=== PATIENT | female | born 2005 | race Caucasian/White ===

== ENCOUNTER 2025-01-06 13:36 | Outpatient (OUT) | payer OTHER, SELFPAY ==
--- NOTE | 2025-01-06 13:45 | XR_ITS ---
[address] [address] Patient Name: LARISSA BIGGS MRN: [id number] date: 2005 Sex: F Assigned Patient Location: RAD Current Patient Location: [facility] Accession/Order Number: [id number] Exam Date: 01/06/2025 13:52 Report Date: 01/06/2025 14:17 At the request of: ERLINDA PRYOR Procedure: XR knee RT 4V RIGHT KNEE - 4 views CLINICAL HISTORY: Pain in right knee COMPARISON: None FINDINGS: No knee joint effusion. Joint spaces appear maintained. No acute bony process. XR/XR knee RT 4V IMPRESSION: NO ACUTE BONY PROCESS. Impression dictated by: Spenser Trammell Jr., SarahOHina 01/06/2025 2:17 PM Dictation Location: [place] [address] Electronically authenticated by: [id number] Y Date: 01/06/2025 14:17
== END 2025-01-06 13:37 | disposition home or self-care (01) ==
LOC: RAD 13:39
PROVIDERS: PCP Nurse Practitioner; Visit Provider Nurse Practitioner
DX: S89.91XA Unspecified injury of right lower leg, initial encounter (principal); Z78.9 Other specified health status; M25.561 Pain in right knee; Z68.30 Body mass index [BMI] 30.0-30.9, adult
CPT/HCPCS: 73564

== ENCOUNTER 2025-02-27 15:32 | Outpatient (OUT) | payer OTHER, SELFPAY ==
--- OUTSIDE RECORDS SUMMARY | 2025-02-27 15:36 | XMS_ITS | Clinical Summary ---
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 Name Role Phone Tejal Davis MD Primary Care Provider [phone] Allergies Active AllergyReactionsCriticalityNoted DateCommentsPenicillinsNausea And Vomiting,CmruUfh6607/10/2021ulfa AntibioticsRash,Swelling,AiaujYiy50/10/2022 Medications MedicationSigDispense QuantityRefillsLast FilledStart DateEnd DateStatus sertraline (Zoloft) 100 MG tablet Take by mouth Daily.Active Active Problems ProblemNoted DateDiagnosed DateVitamin D pdynykenty60/01/2025Generalized kxwfromzjogci58/01/2025bnormal weight gain08/31/2024Other yxpfvdx1708/31/2024 Family History Medical HistoryRelationNameCommentsBreast cancerMotherCancerMotherThyroid diseaseMotherRelationNameStatusCommentsFatherDeceasedMotherAlive Social History Tobacco UseTypesPacks/DayYears UsedDateSmoking Tobacco: NeverSmokeless Tobacco: NeverAlcohol UseStandard Drinks/WeekCommentsNever0 (1 standard drink = 0.6 oz pure alcohol)CommentsNoSex and Gender InformationValueDate RecordedSex Assigned at BirthNot on fileLegal GzfPqrcrq06/15/2023 7:00 PM EDTGender Identity Not on fileSexual OrientationNot on file Last Filed Vital Signs Vital SignReadingTime TakenCommentsBlood Vfxurayp783/6801 4:46 PM EST Chvrf50921/09/2025 4:46 PM ZBJAvawjqvmwyq54.7 ??C (98 ??F)05/11/2024 4:46 PM EST Respiratory Omut345605/11/2024 4:46 PM ESTOxygen Mwjirmrhpo55%05/11/2024 4:46 PM ESTInhaled Oxygen Concentration--Tzlqau13.4 kg (142 lb)05/11/2024 4:46 PM EST Jjvdlz548 cm (5' 3 )10/21/2023 5:05 PM EDTBody Mass Index25.15010/21/2023 5:05 PM EDTBody Mass Index Mjmofnubpu71.91%05/11/2024 4:46 PM ESTGrowth Chart: [facility] (Girls, 2-20 Years) Plan of Treatment Not on file Insurance Care Teams Team MemberRelationshipSpecialtyStart DateEnd Tejal Davis MD [address] [place] [address] PCP - GeneralFamily Medicine12/02/22
--- NOTE | 2025-02-27 15:47 | MR_ITS ---
[address] [address] Patient Name: LARISSA BIGGS MRN: [id number] date: 2005 Sex: F Assigned Patient Location: [facility] Current Patient Location: Accession/Order Number: [id number] Exam Date: 02/27/2025 16:00 Report Date: 02/28/2025 08:45 At the request of: ERLINDA PRYOR Procedure: MR knee RT wo con MRI of the RIGHT Knee without contrast TECHNIQUE: Multiplanar T1 and T2-weighted imaging of the knee obtained without contrast HISTORY: Chronic right knee pain. 5 years duration. Sparse injury. Worse in the last month. Recent fall. COMPARISON:Comparison plain film imaging 01/06/2025. BONE MARROW: No infiltrative changes. BONE MARROW EDEMA: None FRACTURE: None BONE TUMOR: None BONY ALIGNMENT: Adequate DEGENERATION: No significant spurring or joint space narrowing. JOINT EFFUSION: Small joint effusion identified. MUSCLES: Unremarkable SOFT TISSUES: Unremarkable POPLITEAL CYST: None ANTERIOR CRUCIATE LIGAMENT: Intact POSTERIOR CRUCIATE LIGAMENT: Intact LATERAL COMPARTMENT: LATERAL MENISCUS: Intact. LATERAL ARTICULAR CARTILAGE: Intact. No osteochondral defect. No subcuticular bone marrow edema. PROXIMAL TIBIOFIBULAR JOINT: Intact POSTERIOR LATERAL COMPARTMENT: Intact lateral collateral ligament complex. Intact biceps femoris tendon. Intact popliteus tendon. COMMON PERONEAL NERVE: Intact MEDIAL COMPARTMENT: MEDIAL MENISCUS: Intact MEDIAL ARTICULAR SURFACE: No chondromalacia. No subarticular bone marrow edema. POSTERIOR MEDIAL COMPARTMENT: Medial collateral ligament complex intact. The semimembranosus tendon intact. No ramp lesion of the posterior horn of medial meniscus present. PATELLOFEMORAL COMPARTMENT: PATELLOFEMORAL ARTICULAR CARTILAGE: Heterogeneous signal changes of the patellar articular cartilage suggesting mild chondromalacia. ANTERIOR LIGAMENTS: Patellar ligament and quadriceps tendon are intact. MR/MR knee RT wo con IMPRESSION: No fluid signal intensity tear of the menisci. Intact ACL. Small joint effusion. Mild chondromalacia of the patella. No bone marrow edema or linear fracture. Impression dictated by: Orlin Kilgore M.D. 02/28/2025 8:45 AM Dictation Location: [place] [address] Electronically authenticated by: [id number] Y Date: 02/28/2025 08:45
--- NOTE | 2025-02-27 15:47 | XR_ITS ---
The [address] [address] Patient Name: LARISSA BIGGS MRN: [id number] date: 2005 Sex: F Assigned Patient Location: [facility] Current Patient Location: [facility] Accession/Order Number: [id number] Exam Date: 02/27/2025 15:50 Report Date: 02/27/2025 16:02 At the request of: ERLINDA PRYOR Procedure: XR foreign body eye PEDRO Orbits 2 views. Reason for exam: Pre-MRI. FINDINGS: No radio opaque foreign body. No acute bony process. XR/XR foreign body eye PEDRO IMPRESSION: No radio opaque foreign body. Impression dictated by: Spenser Trammell Jr. DHinaOHina 02/27/2025 4:02 PM Dictation Location: [place] [address] Electronically authenticated by: [id number] Y Date: 02/27/2025 16:02
== END 2025-02-27 15:33 | disposition home or self-care (01) ==
PROVIDERS: PCP Nurse Practitioner; Visit Provider Nurse Practitioner
DX: Z01.818 Encounter for other preprocedural examination (principal); S89.91XA Unspecified injury of right lower leg, initial encounter; M25.561 Pain in right knee; M25.461 Effusion, right knee
CPT/HCPCS: 70030; 73721